=== PATIENT | female | born 1995 | race Caucasian/White ===

== ENCOUNTER 2023-07-15 17:52 | Emergency (ER) | payer OTHER, SELFPAY ==
[2023-07-15 17:57] VITALS: BP 132/69; PULSE 91; RESP 20; TEMP 36.2; O2SAT 100
[2023-07-15 20:52] LABS: Basophils Percent Auto 0.5 % (0.2-1.2); Eosinophils Absolute Auto 0.1 K/mm3 (0-0.3); Eosinophils Percent Auto 1.1 % (0-4.4); Hematocrit 33.9 % (37.0-47.0); Hemoglobin 11.2 g/dL (12.0-15.0); Immature Granulocyte Absolute 0.02 K/mm3 (0.00-0.031); Immature Granulocyte Percent A 0.3 % (0-0.5); Lymphocytes Absolute Auto 2.29 K/mm3 (0.9-3.2); Lymphocytes Percent Auto 28.7 % (18.3-44.2); Mean Corpuscular Volume 90.9 fl (80-100); Mean Platelet Volume 10.2 fl (7.4-10.4); Monocytes Absolute Auto 0.7 K/mm3 (0.1-0.6); Monocytes Percent Auto 8.6 % (2.6-8.5); Neutrophils Absolute Auto 4.9 K/mm3 (1.3-6.7); Neutrophils Percent Auto 60.8 % (45.5-73.1); Platelet Count Result 230 k/mm3 (150-375); Red Blood Count 3.73 M/mm3 (4.2-5.4); Red Cell Distribution Width 11.8 % (11.5-14.5)
[2023-07-15 21:07] LABS: Alanine Aminotransferase 16 U/L (6-35); Albumin Level 4.4 g/dL (3.5-5.1); Alkaline Phosphatase 54 U/L (38-126); Anion Gap 9 mmol/L (4-12); Aspartate Amino Transferase 23 U/L (14-36); Bilirubin,Total 0.4 mg/dL (0.2-1.3); Blood Urea Nitrogen 5 mg/dL (7-17); Calcium 9.6 mg/dL (8.4-10.2); Carbon Dioxide 22 mmol/L (22-30); Chloride 102 mmol/L (98-107); Estimated CRCL calculation 179 ml/min; Estimated Glomerular Filt Rate > 60; Glucose 85 mg/dL (65-110); Potassium 3.4 mmol/L (3.4-5.0); Sodium 133 mmol/L (137-145)
[2023-07-15] MEDS: SODIUM CHLORIDE 0.9% IV 1,000 ML 999 ML IV CONT (22:55)
[2023-07-15] MEDS: ONDANSETRON INJ 4 MG/2 ML VIAL IV PUSH (22:55)
[2023-07-15 23:20] VITALS: BP 118/73; PULSE 92; RESP 14; O2SAT 100
--- NOTE | 2023-07-15 23:55 | ED.GENADULT ---
HPI - General Adult General Chief complaint: Nausea/Vomiting/Diarrhea Stated complaint: 12 weeks with n/v Time Seen by Provider: 07/15/23 23:10 History of Present Illness HPI narrative: Patient is a 28-year-old female who presents to the emergency department this evening complaining of persistent nausea. Patient is currently 12 weeks . Patient takes Zofran, Unisom and Benadryl at home which states that initially was keeping her nausea and vomiting at [facility], however, it has now seems to not work as well. Patient was sent here by her OB for IV fluids and hydration. She states that she currently feels nauseous but has not vomited but this is likely due the fact that she has not had anything to eat. Patient denies any abdominal cramping, any vaginal bleeding or spotting and currently denies any additional symptoms or concerns at this time. Related Data Allergies Allergy/AdvReac Type Severity Reaction Status Date / Time Sulfa (Sulfonamide Allergy Unknown Rash Verified 06/16/23 15:37 Antibiotics) Review of Systems Review of Systems: All systems are reviewed and are negative unless stated otherwise in the HPI. [facility] Past Medical History Medical History Graves disease Vaginal irritation Family History Family History Other Hypertension Malignant neoplasm of prostate Social History Social History Smoking status: Never smoker Alcohol intake: never Substance use: never Substance use type: does not use Lack of Transportation: No Lack of Food: Never True Current Housing: I Have Housing Concerned About Future Housing: No Difficulty Paying Gas/Electric Bills: No Difficulty Paying for Meds: No Currently Unemployed: No Education: Bachelor's Degree Difficulty w/ Childcare or Family Care: No Living arrangements: with family Occupation/Education: occupation 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 HEENT: PERRL, no rhinorrhea, no post nasal drip, oropharynx clear. Cardiovascular: Regular rate and rhythm, no murmurs, rubs or gallops, no peripheral edema. Respiratory: Clear to auscultation bilaterally, no tachypnea, no wheezing, no rhonchi, no rubs, no respiratory distress. Abdomen: Soft, nontender, nondistended, no rebound, no guarding, no peritoneal signs. Musculoskeletal: No joint swelling or deformity, normal muscle tone. Skin: No rashes or petechia, no signs of infection. Neurological: Alert and oriented to person, place, and time. Follows all commands. No focal deficits, speech is clear and fluent. Course Vital Signs Vital signs: Vital Signs Temperature 97.2 F L 07/15/23 17:57 Pulse Rate 91 07/15/23 17:57 Respiratory Rate 20 07/15/23 17:57 Blood Pressure 132/69 07/15/23 17:57 Pulse Oximetry 100 07/15/23 17:57 Oxygen Delivery Room Air 07/15/23 17:57 Temperature 97.2 F L 07/15/23 17:57 Pulse Rate 96 07/16/23 00:32 Respiratory Rate 15 07/16/23 00:32 Blood Pressure 109/61 07/16/23 00:32 Pulse Oximetry 100 07/16/23 00:32 Oxygen Delivery Room Air 07/15/23 17:57 Medical Decision Making MDM Narrative Medical decision making narrative: The patient was evaluated by myself in the emergency department. History is obtained from patient who is an independent historian and physical exam was performed. External medical records were reviewed at this time. IV was established and pertinent tests were ordered. Patient was administered 2 L IV fluid bolus with normal saline and 4 mg of IV Zofran. Laboratory results obtained revealing no acute p
[2023-07-16] MEDS: SODIUM CHLORIDE 0.9% IV 1,000 ML 999 ML IV CONT (00:07)
[2023-07-16 00:32] VITALS: BP 109/61; PULSE 96; RESP 15; O2SAT 100
[2023-07-16 01:45] VITALS: BP 120/77; PULSE 94; RESP 15; O2SAT 100
== END 2023-07-16 01:45 | disposition home or self-care (01) ==
PROVIDERS: Emergency Provider Emergency Medicine; PCP Obstetrics & Gynecology
DX: O21.0 Mild hyperemesis gravidarum (principal); Z3A.12 12 weeks gestation of pregnancy; O99.281 Endocrine, nutritional and metabolic diseases complicating pregnancy, first trimester; E05.00 Thyrotoxicosis with diffuse goiter without thyrotoxic crisis or storm
CPT/HCPCS: 36415; 80053; 85025; 96361; 96374; 99284; J2405; J7030

== ENCOUNTER 2023-11-17 06:59 | Outpatient (CLI) | payer OTHER, SELFPAY ==
[2023-11-17 07:25] LABS: Glucose Fasting Gestational 79 mg/dL (>/=95)
[2023-11-17 09:03] LABS: Glucose 1 Hour Gest 134 mg/dL (>/=180)
[2023-11-17 09:48] LABS: Glucose 2 Hour Gest 113 mg/dL (>/= 155)
[2023-11-17 10:53] LABS: Glucose 3 Hour Gest 87 mg/dL (>/=140)
== END 2023-11-17 07:00 | disposition home or self-care (01) ==
PROVIDERS: PCP Obstetrics & Gynecology; Visit Provider Student in an Organized Health Care Education/Training Program
DX: O99.810 Abnormal glucose complicating pregnancy (principal); Z3A.00 Weeks of gestation of pregnancy not specified
CPT/HCPCS: 36415; 82951; 82952

== ENCOUNTER 2024-01-17 09:23 | Outpatient (RCR) | payer OTHER, SELFPAY ==
[2023-12-20 11:51] VITALS: BP 117/84; PULSE 97
[2023-12-27 10:11] VITALS: BP 115/81; PULSE 98
[2024-01-03 10:45] VITALS: BP 125/78; PULSE 971
[2024-01-10 09:55] VITALS: BP 121/69; PULSE 86
--- NOTE | ~2024-01-17 | US_ITS ---
EXAMINATION: US OB limited w BPP DATE: 01/03/2024 10:59 INDICATION: Graves' disease. Third trimester. TECHNIQUE: Real-time pelvic ultrasound was performed. COMPARISON: Ultrasound 12/10/2023 FINDINGS: There is a single living fetus in breech presentation. The placenta is anterior and fundal. he art rate is 128 beats per minute (bpm). Biophysical profile performed by the technologist: breathing (30 sec sustained breathing in 30 minutes): 2 out of 2 movement (3 gross body movements in 30 minutes): 2 out of 2 tone (one episode of xdxcrmr-wgeziambu-zzwifbr limb movement): 2 out of 2 Amniotic fluid pocket (2 cm): 2 out of 2 Total score: 8 out of 8 IMPRESSION: 1. Single living fetus in breech presentation. 2. Biophysical profile 8 out of 8. Reviewed, dictated and finalized at location A. 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
[2024-01-17 09:48] LABS: Hematocrit 35.7 % (37.0-47.0); Hemoglobin 11.9 g/dL (12.0-15.0); Mean Corpuscular HGB Conc 33.3 g/dl (32-36); Mean Corpuscular Hemoglobin 30.6 pg (26-34); Mean Corpuscular Volume 91.8 fl (80-100); Mean Platelet Volume 11.4 fl (7.4-10.4); Platelet Count Result 218 k/mm3 (150-375); Red Blood Count 3.89 M/mm3 (4.2-5.4); White Blood Count 8.3 K/mm3 (4.5-10.0)
[2024-01-17 09:53] VITALS: BP 123/83; PULSE 96
[2024-01-17 10:40] LABS: HIV 1/2 Ab P24 Ag Result Negative (Negative)
[2024-01-17 11:30] LABS: Rapid Plasma Reagin Non-Reactive (NonReactive)
== END 2024-03-19 23:59 | disposition home or self-care (01) ==
LOC: ANHOBOP 09:23
PROVIDERS: Visit Provider Obstetrics & Gynecology
DX: O99.280 Endocrine, nutritional and metabolic diseases complicating pregnancy, unspecified trimester (principal); E05.00 Thyrotoxicosis with diffuse goiter without thyrotoxic crisis or storm
CPT/HCPCS: 36415; 59025; 76815; 76819; 85027; 86592; 86703; 86850; 86900; 86901; G0432

== ENCOUNTER 2024-01-19 05:00 | Inpatient (IN) | payer OTHER, SELFPAY ==
[2024-01-19] VITALS (51 sets, daily range): BP systolic 120–164; BP diastolic 77–108; PULSE 69–96; RESP 11–21; TEMP 36.5–36.8; O2SAT 98–100; BMI 29.1
[2024-01-19] MEDS: ACETAMINOPHEN 500 MG TABLET 1000 MG PO (05:33)
[2024-01-19] MEDS: LACTATED RINGERS 1,000 ML 125 ML IV CONT ×2 (05:33→07:14)
--- NOTE | 2024-01-19 05:47 | LDADM ---
This patient, Anrdeina Jacob, was admitted to Labor/Delivery/Recovery 120 on 01/19/24 at 05:00. Plans for labor, pain management and were discussed with patient. Patient/family oriented to hospital policies and general routines including ID bracelet, bed and alarms, visiting hours, pain management, procedures, bathroom and other care routines, personal items, smoking policy, room service/diet and guest tray routines, security routines, and visiting hours. Patient/Family are encouraged to report perceived risks to care and to ask questions if they do not understand what they are told or what they should do. See OBIX for further documentation.
--- NOTE | 2024-01-19 06:32 | P.HP_ITS ---
H&P: HPI History of Present Illness Date/Time: 01/19/24 06:32 Chief Complaint: breech malpresentation Narrative: Andreina is a 28yo @ 39w 2d who presents for scheduled primary delivery due to breech malpresentation. She has had regular care and been following closely with her supervisor operations. She reports good movement. Irregular contractions. No vb or lof. Her is complicated by: - Graves disease -- following w/ [facility] -- PTU 50mg/12h...initiated @13 week -- ASA 162 @ 12wk -- thyroid labs q6wk -- third tri growths q3-4wk -- CORD BLOOD TESTING FOR GRAVES AT DELIVERY (SEE CONSULT NOTE 12/09/23) - Right ovarian cyst; 5cm - BREECH MALPRESENTATION - Elevated 1 hour; normal 3 hour Review of Systems Constitutional: Constitutional: Denies chills, Denies fever(s) and Denies headache(s) Eyes: Eyes: Denies change in vision ENT: Denies headache(s) Cardiovascular: Cardiovascular: Denies chest pain and Denies dyspnea Respiratory: Respiratory: Denies dyspnea Genitourinary: Genitourinary: Denies abnormal vaginal bleeding and Denies vaginal discharge Neurologic: Denies headache(s) Psychiatric: Psychiatric: Denies anxiety and Denies depression [facility] Past Medical History Medical History Graves disease Vaginal irritation Family History Family History Father Pancreas cancer Hypertension Mother Kaye's disease Hypertension Other Malignant neoplasm of prostate Grandparent Hodgkins lymphoma Pancreas cancer Bone cancer Lung cancer AAA (abdominal aortic aneurysm) Brain aneurysm Alzheimer dementia Social History Social History Smoking status: Never smoker Second hand tobacco smoke exposure: No Alcohol intake: never Substance use: never Substance use type: does not use Do You Feel Safe in your Home?: Yes Lack of Transportation: No Lack of Food: Never True Current Housing: I Have Housing Concerned About Future Housing: No Difficulty Paying Gas/Electric Bills: No Difficulty Paying for Meds: No Currently Unemployed: No Education: Bachelor's Degree Difficulty w/ Childcare or Family Care: No Living arrangements: with family Additional living arrangements comments: Occupation/Education: occupation 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 Gender identity (if verbalized by the patient): Female Sexual Orientation (if Verbalized by the Patient): Straight or Heterosexual Spiritual care concerns: No Meds Home Medications and Allergies Home Medications Medication Instructions Recorded Confirmed Type ondansetron 4 mg disintegrating 4 mg PO Q6H PRN nausea and 06/16/23 01/14/24 Rx tablet vomiting #60 tabs vits no.126-ferrous fum 1 tablet PO DAILY 07/22/23 01/14/24 History 28 mg iron-folic acid 800 mcg tablet (Classic ) aspirin 81 mg tablet,delayed 162 mg PO DAILY 08/18/23 01/14/24 History release (Adult Low Dose Aspirin) ferrous sulfate 325 mg (65 mg 325 mg PO DAILY 12/20/23 01/14/24 History iron) tablet Allergies Allergy/AdvReac Type Severity Reaction Status Date / Time Sulfa (Sulfonamide Allergy Unknown Rash Verified 01/14/24 16:56 Antibiotics) peanut Allergy Difficulty Verified 01/14/24 16:56 Breathing Vital Signs Vital Signs - 24 hr 01/19/24 05:33 01/19/24 05:45 01/19/24 06:00 Pulse Rate 95 92 90 Blood Pressure 147/108 H 142/100 H 152/99 H 01/19/24 06:15 01/19/24 06:30 Pulse Rate 95 92 Blood Pressure 151/98 H 147/103 H Exam Const: General: cooperative, healthy appearing, comfortable and no acute distress Orientation/consciousness: patient oriented x3 Resp: Effort & Inspection: normal respiratory effort Cardio: Rate: regular rate GI: GI Palp: No abdominal tenderness : Other: FHT's: 130's/ mod kareem/ + accels/ no decels - cat 1 TOCO: irregular ctxs Membranes: intact Presentation: breech on bedside US Skin: General skin exam: normal color Neuro: General: patient oriented x3 Extrem: General: normal to inspection Psych: Appearance: grossly normal Affect: normal affect Attitude: cooperative Assessment and Plan Assessment and plan (1) Breech presentation: Code(s): O32.1XX0 - Maternal care for breech presentation, not applicable or unspecified Status: Acute (2) Graves disease: Code(s): E05.00 - Thyrotoxicosis with diffuse goiter without thyrotoxic crisis or storm Status: Acute Plan - Breech malpresentation confirmed on bedside US - Proceed with primary section - Risks and benefits discussed in detail - Ancef 2g IV once pre-op
[2024-01-19 06:33] LABS: HIV 1/2 Ab P24 Ag Result Negative (Negative)
--- NOTE | 2024-01-19 06:39 | WPDHPUPDATE1 ---
History and Physical Update Update Date/Time: 01/19/24 06:39 History and Physical has been reviewed, including an updated exam of the patient. There are NO changes in the patient's condition. Risks, benefits, and alternatives have been discussed and questions answered. Patient agrees to proceed with primary section.
[2024-01-19] MEDS: FAMOTIDINE 20 MG/2 ML VIAL IV PUSH (07:15)
[2024-01-19] MEDS: ONDANSETRON INJ 4 MG/2 ML VIAL IV PUSH (07:15)
[2024-01-19] MEDS: ceFAZolin 2 GM/D5W 50 ML 2 GM/50 ML BAG IVPB (07:32)
--- NOTE | 2024-01-19 07:35 | P.PNAN_ITS ---
Anes - Initial Pre Proc Eval Procedure: Operation Date: 01/19/24 07:30 Proposed Procedures p Section - Lorena Kennedy MD Date/Time: 01/19/24 07:35 Surgeon: Lorena Kennedy MD Pre Op Diagnosis: C/S Patient Data Age: 28 Gender: F Height: 1.63 m Weight: 77 kg Last Vital Signs Pulse 92 01/19/24 07:15 BP 136/94 H 01/19/24 07:15 Allergies Allergy/AdvReac Type Severity Reaction Status Date / Time Sulfa (Sulfonamide Allergy Unknown Rash Verified 01/14/24 16:56 Antibiotics) peanut Allergy Difficulty Verified 01/14/24 16:56 Breathing Home Medications Medication Instructions Recorded Confirmed Type ondansetron 4 mg disintegrating 4 mg PO Q6H PRN nausea and 06/16/23 01/14/24 Rx tablet vomiting #60 tabs vits no.126-ferrous fum 1 tablet PO DAILY 07/22/23 01/14/24 History 28 mg iron-folic acid 800 mcg tablet (Classic ) aspirin 81 mg tablet,delayed 162 mg PO DAILY 08/18/23 01/14/24 History release (Adult Low Dose Aspirin) ferrous sulfate 325 mg (65 mg 325 mg PO DAILY 12/20/23 01/14/24 History iron) tablet Laboratory Tests 01/19/24 05:32 RPR Pending HIV 1&2 Ab/P24 Ag 4thGn Negative (Negative) Patient hx anesthesia problems: none Family hx anesthesia problems: none Results Review: All pre-operative results and documents have been reviewed as part of the pre- operative evaluation. [facility] Past Medical History Medical History Graves disease Vaginal irritation Family History Family History Father Pancreas cancer Hypertension Mother Kaye's disease Hypertension Other Malignant neoplasm of prostate Grandparent Hodgkins lymphoma Pancreas cancer Bone cancer Lung cancer AAA (abdominal aortic aneurysm) Brain aneurysm Alzheimer dementia Social History Social History Smoking status: Never smoker Second hand tobacco smoke exposure: No Alcohol intake: never Substance use: never Substance use type: does not use Do You Feel Safe in your Home?: Yes Lack of Transportation: No Lack of Food: Never True Current Housing: I Have Housing Concerned About Future Housing: No Difficulty Paying Gas/Electric Bills: No Difficulty Paying for Meds: No Currently Unemployed: No Education: Bachelor's Degree Difficulty w/ Childcare or Family Care: No Living arrangements: with family Additional living arrangements comments: Occupation/Education: occupation 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 Gender identity (if verbalized by the patient): Female Sexual Orientation (if Verbalized by the Patient): Straight or Heterosexual Spiritual care concerns: No Anes - Eval Final PreProcedure Day of Procedure 01/19/24 07:35 Patient weight: overweight Heart: regular rate and rhythm Lungs: clear to auscultation Airway: Mallampati scale class II Neurological: alert and oriented Last oral intake: >/= 8 hours ASA classification: II Emergent: no Anesthetic plan: proceed Anesthesia type and monitoring: regional spinal and standard monitoring Results Review: All pre-operative results and documents have been reviewed as part of the pre- operative evaluation. Plts 218. Informed Consent: The patient's anesthetic plan and its attendant risks and benefits were discussed with the patient/family/POA. Questions were solicited and answers provided to the satisfaction of the patient/family/POA.
[2024-01-19 07:50] LABS: Rapid Plasma Reagin Non-Reactive (NonReactive)
--- NOTE | 2024-01-19 08:47 | W.PM.OBCSD ---
OB - Delivery Note Procedure Delivery date: 01/19/24 Pre-op diagnosis: Breech Presentation and Other (Graves disease) Post-op Diagnosis: Same Delivery monitor: External FHT Prior to decision for section, [facility] labor guidelines were considered and discussed with the patient and staff. Decision made to proceed with the section.: Yes Procedure Performed: Primary Primary branch: low cervical, transverse Surgeon: Lorena Kennedy MD Anesthesia type: Spinal Description of Procedure/Findings: Female infant, kennedy breech presentation, thin meconium stained fluid. Normal tubes and ovaries bilaterally. Good hemostasis at end of case. Specimen: Yes (placenta) Estimated Blood Loss: 615 IV Fluids: 1,400 Pathology: Yes Complications: No immediate complications Condition: Stable Disposition: Floor [place] Baby Date of : 01/19/24 Time of : 08:04 Gestational Age by Date: 39 (.2) Infant gender: Female Weight (pounds): 7 Weight (ounces): 14 presentation: kennedy breech Placenta delivery description: Expressed Cord Vessel Description: 3 Vessels, Nuchal Cord (x2), Loose and Delayed Cord Clamping score one minute: 9 score five minutes: 9 Narrative: Andreina was counseled on all risks and benefits in detail. She was taken to the operating room where spinal was placed and found to be adequate. She was then prepped and draped in the normal sterile fashion. She received 2g Ancef and a time out was performed. A Pfannenstiel incision was made in the skin and carried down to the underlying fascia. The fascia was nicked on either side of the midline and the fascial incision was extended laterally and superiorly using curved Richardson scissors. The fascia was then elevated using Naman clamps and the underlying rectus muscles were dissected off the fascia, superiorly and inferiorly. The rectus muscles were then in the midline and the peritoneum was entered bluntly. Once adequate exposure was obtained, a Mobius self retractor was placed within the abdomen. A bladder flap was created. A low transverse incision was made on the lower uterine segment and thin meconium fluid was noted. The hips were grasped and the buttocks were brought to the hysterotomy and the fetus was delivered in the normal breech maneuvers; terminal meconium was noted. The nuchal x2 was reduced, and the was stimulated and then cry was heard. The cord was clamped and cut and the infant was handed off to the awaiting pediatric nurse. A segment of the cord was collected for cord gases. The remaining cord blood was collected for typing and labs needed to test for Grave's disease. With pitocin infusing, the placenta delivered with gentle traction on the cord without complications. The uterus was then cleared out of all clots and debris using a clean, moist lap. The hysterotomy was then repaired in a running fashion using 0 Vicryl. A second layer imbricating suture was then made using 0 Vicryl. The hysterotomy was found to be hemostatic and good uterine tone was noted. The bilateral adnexa were examined and found to be normal. The pelvis was cleared of all clots and fluid. The Mobius retractor was removed from the abdomen. The peritoneum, muscle, and fascia were examined and made hemostatic with bovie cautery. The fascia was then repaired using a 0 Vicryl suture in a running fashion. The subcutaneous tissue was then irrigated and made hemostatic with bovie cautery. The subcutaneous tissue was then reapproximated using 2-0 Vicryl. The skin was then closed using 4-0 Monocryl in a running subcuticular fashion. A Mepilex dressing was placed over her incision. Sponge, lap, needle and instrument counts were correct at the end of the procedure x2. The patient tolerated the procedure well and was taken to recovery in a stable condition.
[2024-01-19] MEDS: OXYTOCIN 30 UNITS/NS 500 ML 30 UNITS/500 ML BAG 125 UNITS IV CONT (09:50)
--- NOTE | 2024-01-19 11:07 | OBPPTRN ---
Patient transferred to post room #292 via stretcher. Support person present. Oriented to unit, room, information board, rooming in, admission packet and security measures. Patient verbalizes understanding.
[2024-01-19 11:22] LABS: Creatinine Urine 119.1 mg/dL; Total Protein Urine Random 29 mg/dL; Ur Ttl Prot Creatinine Ratio 0.24 mg/mg (0-0.20)
[2024-01-19] MEDS: KETOROLAC 15 MG/ML VIAL (*BKC) IV PUSH ×2 (13:29→19:01)
[2024-01-19] MEDS: SIMETHICONE 80 MG TAB.CHEW PO ×2 (13:31→17:15)
[2024-01-19] MEDS: ACETAMINOPHEN 325 MG TABLET 650 MG PO ×2 (13:31→19:01)
[2024-01-19] MEDS: LIDOCAINE 5% PATCH 1 PATCH TRANSDERM (13:32)
[2024-01-19] MEDS: DEXTROSE 5%/0.45% SOD CHL 1,000 ML 125 ML IV CONT (14:37)
[2024-01-19] MEDS: DOCUSATE SODIUM 100 MG CAPSULE PO (17:15)
[2024-01-19] MEDS: MULTIVIT/MIN/PREN/FOL AC/IRON TABLET 1 TAB PO (17:15)
[2024-01-20] VITALS (7 sets, daily range): BP systolic 137–141; BP diastolic 86–94; PULSE 87–92; RESP 16–18; TEMP 36.3–37.1; O2SAT 99–100
[2024-01-20] MEDS: ACETAMINOPHEN 325 MG TABLET 650 MG PO ×4 (01:30→20:45)
[2024-01-20] MEDS: KETOROLAC 15 MG/ML VIAL (*BKC) IV PUSH ×2 (01:30→07:37)
[2024-01-20 05:47] LABS: Basophils Percent Auto 0.3 % (0.2-1.2); Eosinophils Absolute Auto 0.1 K/mm3 (0-0.3); Eosinophils Percent Auto 0.7 % (0-4.4); Hematocrit 31.9 % (37.0-47.0); Hemoglobin 10.1 g/dL (12.0-15.0); Immature Granulocyte Absolute 0.06 K/mm3 (0.00-0.031); Immature Granulocyte Percent A 0.6 % (0-0.5); Lymphocytes Absolute Auto 1.76 K/mm3 (0.9-3.2); Lymphocytes Percent Auto 16.4 % (18.3-44.2); Mean Corpuscular HGB Conc 31.7 g/dl (32-36); Mean Corpuscular Volume 94.7 fl (80-100); Mean Platelet Volume 11.7 fl (7.4-10.4); Monocytes Absolute Auto 0.6 K/mm3 (0.1-0.6); Neutrophils Absolute Auto 8.1 K/mm3 (1.3-6.7); Platelet Count Result 178 k/mm3 (150-375); Red Blood Count 3.37 M/mm3 (4.2-5.4); White Blood Count 10.7 K/mm3 (4.5-10.0)
[2024-01-20 06:04] LABS: Alanine Aminotransferase 9 U/L (6-35); Albumin Level 3.1 g/dL (3.5-5.1); Alkaline Phosphatase 114 U/L (38-126); Anion Gap 2 mmol/L (4-12); Aspartate Amino Transferase 25 U/L (14-36); Bilirubin,Total 0.3 mg/dL (0.2-1.3); Blood Urea Nitrogen 5 mg/dL (7-17); Calcium 8.7 mg/dL (8.4-10.2); Carbon Dioxide 27 mmol/L (22-30); Chloride 106 mmol/L (98-107); Estimated CRCL calculation 171 ml/min; Estimated Glomerular Filt Rate > 60; Glucose 91 mg/dL (65-110); Potassium 3.9 mmol/L (3.4-5.0); Sodium 135 mmol/L (137-145)
--- NOTE | 2024-01-20 07:12 | P.PNOB_ITS ---
OB - PN: Subj Subjective Date/time seen: 01/20/24 07:14 Narrative: POD#1 Andreina reports doing well today. 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 Her pain is not fully controlled on only the tylenol/toradol. She is tolerating regular diet, voiding, and has ambulated without issues. She denies any issues with her incision. She is bottle feeding. Denies ELIZABETH, CP, SOB or RUQ pain. OB - PN: Obj Data Labs 01/20/24 05:34 01/20/24 05:34 Labs: Laboratory Results - last 24 hr 01/19/24 01/19/24 05:32 10:21 U Random Total Protein 29 Urine Creatinine 119.1 Protein/Creat Ratio 2 0.24 H RPR Non-reactive HIV 1&2 Ab/P24 Ag 4thGn Negative OB - PN A/P Assessment and Plan (1) S/P primary low transverse : Code(s): Z98.891 - History of uterine scar from previous surgery Status: Acute (2) Breech presentation: Code(s): O32.1XX0 - Maternal care for breech presentation, not applicable or unspecified Status: Acute (3) Graves disease: Code(s): E05.00 - Thyrotoxicosis with diffuse goiter without thyrotoxic crisis or storm Status: Acute (4) Gestational hypertension: Code(s): O13.9 - Gestational [-induced] hypertension without significant proteinuria, unspecified trimester Status: Acute Plan day: 1 Plan: routine care Comments: - PO pain meds, discussed with nursing to offer hydrocodone - Regular diet - Ambulation and hydration encouraged - BPs remain in the moderate range; will start labetalol 200mg BID Time Spent With Patient Time: Total time spent is greater than 50% in coordination of care (as documented) at patient's floor/unit and/or counseling patient: Review of Systems Constitutional: Constitutional: Denies chills, Denies fever(s) and Denies headache(s) Eyes: Eyes: Denies change in vision ENT: Denies dizziness and Denies headache(s) Cardiovascular: Cardiovascular: Denies chest pain, Denies palpitations and Denies dyspnea Respiratory: Respiratory: Denies cough and Denies dyspnea Gastrointestinal: Gastrointestinal: Denies nausea and Denies vomiting Genitourinary: Comments: normal bleeding Neurologic: Denies dizziness and Denies headache(s) Endocrine: Endocrine: Denies palpitations Exam Const: General: cooperative, healthy appearing, comfortable and no acute distress Orientation/consciousness: patient oriented x3 Resp: Effort & Inspection: normal respiratory effort Auscultation: clear to auscultation bilaterally Cardio: Rate: regular rate GI: Inspection: non-distended and incision (covered with clean dressing) GI Palp: Yes abdominal tenderness (appropriate) and Yes Soft to palpation Auscultation: normal bowel sounds : Other: fundus firm Skin: General skin exam: normal color Neuro: General: patient oriented x3 Extrem: General: normal to inspection Psych: Appearance: grossly normal Affect: normal affect Attitude: cooperative
[2024-01-20] MEDS: LABETALOL HCL 100 MG TABLET 200 MG PO ×2 (07:39→21:11)
[2024-01-20] MEDS: DOCUSATE SODIUM 100 MG CAPSULE PO ×2 (07:42→16:32)
[2024-01-20] MEDS: HYDROcodone/acetaminophen (*CRX) 5-325 MG TABLET 1 TAB PO (07:42)
[2024-01-20] MEDS: SIMETHICONE 80 MG TAB.CHEW PO ×3 (07:42→16:32)
[2024-01-20] MEDS: MULTIVIT/MIN/PREN/FOL AC/IRON TABLET 1 TAB PO (07:43)
--- NOTE | 2024-01-20 09:00 | WPDANLDPN2 ---
Anes-Prog Note L&D Date/Time: 01/20/24 09:00 Comfortable throughout: section Neuraxial method: spinal Epidural/Spinal procedure site: tender Neuro status: Neuro function grossly intact. Cardiovascular status: normal Respiratory status: normal Airway patency: baseline Mental status: baseline Post-Op hydration status: normal Vital Signs: Last Vital Signs Temp 37.1 C 01/20/24 07:45 Pulse 91 01/20/24 07:45 Resp 16 01/20/24 07:45 BP 138/90 01/20/24 07:45 Pulse Ox 100 01/20/24 07:45 O2 Del Method Room Air 01/20/24 07:45 Pain score (VAS): 4/10 I/O: Intake & Output 01/19/24 01/20/24 01/20/24 23:59 07:59 15:59 Intake Total 900 600 Output Total 1100 880 Balance -200 -280 Post-procedural complaints: none Patient feedback: Patient satisfied with anesthetic care.
--- NOTE | 2024-01-20 09:01 | WPDANLDNPN2 ---
Anes-Prog Note L&D-Neuraxial Date/Time: 01/20/24 09:01 Neuraxial medications: intrathecal PF morphine Opiod-related complaints: none Patient feedback: Patient satisfied with post-operative pain management.
[2024-01-20] MEDS: HYDROcodone/acetaminophen (*CRX) 10-325 MG TABLET 1 TAB PO ×3 (12:11→21:12)
[2024-01-20] MEDS: LIDOCAINE 5% PATCH 1 PATCH TRANSDERM (13:56)
[2024-01-20] MEDS: IBUPROFEN 600 MG TABLET PO ×2 (14:45→20:45)
[2024-01-21] MEDS: HYDROcodone/acetaminophen (*CRX) 10-325 MG TABLET 1 TAB PO ×4 (00:32→16:12)
[2024-01-21 01:12] VITALS: BP 145/94; PULSE 80; O2SAT 99
[2024-01-21] MEDS: HYDROcodone/acetaminophen (*CRX) 5-325 MG TABLET 1 TAB PO (04:00)
[2024-01-21] MEDS: IBUPROFEN 600 MG TABLET PO ×3 (04:00→16:11)
[2024-01-21] MEDS: ACETAMINOPHEN 325 MG TABLET 650 MG PO ×3 (04:00→16:11)
[2024-01-21 04:06] VITALS: BP 142/96; PULSE 82; O2SAT 100
--- NOTE | 2024-01-21 07:21 | PM.OBDSVD ---
DS: Admitting Diagnosis Discharge Date 01/21/24 Admitting Diagnosis Breech malpresentation Grave's disease DS: Discharge Diagnosis Discharge Diagnosis (1) S/P primary low transverse : Code(s): Z98.891 - History of uterine scar from previous surgery Status: Acute (2) Gestational hypertension: Qualifiers: Trimester: third trimester Qualified Code(s): O13.3 - Gestational [-induced] hypertension without significant proteinuria, third trimester Code(s): O13.9 - Gestational [-induced] hypertension without significant proteinuria, unspecified trimester Status: Acute OB - DS: Summary OB Procedures : NST and Ultrasound OB Procedures Intrapartum: low cervical, transverse OB Procedures: : Other (anti-hypertensives; labetalol PO) Peripartum Data Infant Delivery Method: Section Procedures: Procedures Operation Date: 01/19/24 07:30 Actual Procedure Side Surgeon p Section Bilateral Lorena Kennedy MD [place] [address]: Gender: Female Disposition of : home Status at Discharge Functional status at discharge: independent ambulation Overall status at discharge: patient is back to baseline Time Spent with Patient Time attestation: Total time spent providing and/or coordinating discharge services: Exam Const: General: cooperative, healthy appearing, comfortable and no acute distress Orientation/consciousness: patient oriented x3 Resp: Effort & Inspection: normal respiratory effort Auscultation: clear to auscultation bilaterally Cardio: Rate: regular rate GI: Inspection: non-distended and incision (covered with clean dressing) GI Palp: No abdominal tenderness and Yes Soft to palpation Auscultation: normal bowel sounds : Other: fundus firm Skin: General skin exam: normal color Neuro: General: patient oriented x3 Extrem: General: normal to inspection Psych: Appearance: grossly normal Affect: normal affect Attitude: cooperative DS: Data Data Completed and Pending Pending studies at discharge: Pending at discharge 01/19/24 08:05 Surgical [PTH] Routine Discharge Plan Discharge Attending physician on discharge: Lorena Kennedy Discharging Clinician: Lorena Kennedy Patient Disposition: Home, Self-Care Activity: may shower and pelvic rest Diet: regular Discharge Instructions: NO lifting over 15lbs for 6 weeks Remove dressing on 01/25/24; keep incision open to air Patient Instructions: (DC) Stand Alone Forms: General Discharge Information Follow-up/Referrals: Lorena Kennedy MD [Physician] - 1 Week Discharge Medications: New acetaminophen 325 mg Tablet 650 mg PO Q6H Qty: 60 0RF hydrocodone-acetaminophen 5-325 mg Tablet 1 tablet PO Q3H PRN (Reason: Breakthrough Pain Rated 4-6) Qty: 20 0RF docusate sodium 100 mg Capsule 100 mg PO BID Qty: 60 0RF ibuprofen 600 mg Tablet 600 mg PO Q6H Qty: 40 0RF labetalol 200 mg tablet 400 mg PO Q12H 60 Days Qty: 240 0RF Continued Classic 28 mg iron- 800 mcg tablet 1 tablet PO DAILY ferrous sulfate 325 mg (65 mg iron) Tablet 325 mg PO DAILY Discontinued aspirin [Adult Low Dose Aspirin] 81 mg tablet,delayed release (DR/EC) 162 mg PO DAILY ondansetron 4 mg tablet,disintegrating 4 mg PO Q6H PRN (Reason: nausea and vomiting) Qty: 60 2RF Date of admission: 01/19/24 05:00 Primary Care Provider: Bhargavi,Sibohan Jacobson Admitting Provider: Lorena Kennedy Attending physician on admission: Lorena Kennedy Condition: Stable
[2024-01-21 08:45] VITALS: BP 143/86; PULSE 77; RESP 16; TEMP 36.9; O2SAT 100
[2024-01-21] MEDS: SIMETHICONE 80 MG TAB.CHEW PO ×2 (09:15→12:48)
[2024-01-21] MEDS: MULTIVIT/MIN/PREN/FOL AC/IRON TABLET 1 TAB PO (09:15)
[2024-01-21] MEDS: DOCUSATE SODIUM 100 MG CAPSULE PO ×2 (09:15→16:11)
[2024-01-21 09:16] VITALS: PULSE 72
[2024-01-21] MEDS: LABETALOL HCL 100 MG TABLET 400 MG PO (09:16)
[2024-01-21 12:47] VITALS: BP 127/88; PULSE 89; RESP 16; TEMP 36.8; O2SAT 100
[2024-01-21 16:05] VITALS: BP 150/87; PULSE 84; RESP 16; O2SAT 100
[2024-01-23 12:57] VITALS: BP 139/81; PULSE 93; RESP 20; TEMP 36.9; O2SAT 98
== END 2024-01-21 17:00 | disposition home or self-care (01) | DRG 788 ==
LOC: ANHLDR 05:06 → ANHOB2 11:10
PROVIDERS: Admitting Provider Obstetrics & Gynecology; PCP Nurse Practitioner Family; Visit Provider Obstetrics & Gynecology
PROC: 10D00Z1 Extraction of Products of Conception, Low, Open Approach (ICD-10-PCS; CPT 59514; principal; 2024-01-19 07:30)
DX: O32.1XX0 Maternal care for breech presentation, not applicable or unspecified (principal); O34.83 Maternal care for other abnormalities of pelvic organs, third trimester; N83.201 Unspecified ovarian cyst, right side; O69.81X0 Labor and delivery complicated by cord around neck, without compression, not applicable or unspecified; O77.0 Labor and delivery complicated by meconium in amniotic fluid; O13.4 Gestational [pregnancy-induced] hypertension without significant proteinuria, complicating childbirth; Z3A.39 39 weeks gestation of pregnancy; Z37.0 Single live birth; O99.284 Endocrine, nutritional and metabolic diseases complicating childbirth; E05.00 Thyrotoxicosis with diffuse goiter without thyrotoxic crisis or storm
CPT/HCPCS: 36415; 80053; 82570; 84156; 85025; 86592; 86703; 88307; A9270; G0432; J0690; J1885; J2274; J2371; J2405; J2590; J7120